=== PATIENT | male | born 1980 | race Caucasian/White ===

== ENCOUNTER 2018-09-09 15:14 | Emergency (ER) | payer OTHER | END 2018-09-09 17:38 | disposition home or self-care (01) | LOC: E/R 15:14 | DX: S93.402A Sprain of unspecified ligament of left ankle, initial encounter (principal); X50.1XXA Overexertion from prolonged static or awkward postures, initial encounter; Y92.9 Unspecified place or not applicable | CPT/HCPCS: 73562; 73610; 73630-LT; 99283-25 ==